=== PATIENT | male | born 1945 | race Caucasian/White ===

== ENCOUNTER 2023-02-10 09:53 | Outpatient (AMB) | payer MEDICARE, MEDICAID, SELFPAY ==
--- NOTE | 2023-02-10 09:55 | MHC.OFFVIS ---
Intake Vital Signs 02/10/23 09:58 Height 6 ft Weight 233 lb 4 oz BMI 31.6 BP 136/78 Blood Pressure Location Lt brachial Position Sitting Respiration 17 Pulse 63 Pulse Source Pulse Oximeter Pulse Oximetry (%) 95 Oxygen Delivery Method Room Air Intake Visit Reasons: ENP- Abnormal neuro exam-Confirmed Intake Note: Pt presents for new pt evaluation for abnormal neuro exam. 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 Pt has hx of TIA in 2019. Pt reports BLE weakness R>L and frequent falls. He feels his legs too heavy and weak to lift, difficulty walking up stairs. He fell first in October, and had 7 falls since then . 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 Pt has hx of lumbar degenerative disease. He gets cortisone shot on his knee and shoulder q 3 months. Pt tried physical therapy 5 times, but it aggravate his back pain. He also reports short term memory loss. He can't remember the recent conversation, and forget things. Brain MRI result 01/04/2023 result reviewed. The result was consistent with normal pressure hydrocephalus. Volume loss and chronic small vessel changes. Pt denies urinary incontinence. [facility] Medical History (Updated 02/10/23 @ 10:54 by Martha Armstrong CNP) Finger amputation, traumatic Family History (Updated 02/10/23 @ 10:04 by Stephani Tse CMA) Father No problems noted. Mother No problems noted. Brother No problems noted. Social History (Updated 02/10/23 @ 10:05 by Stephani Tse CMA) Household Members: None Housing: House Alcohol intake: former Patient Tobacco Use Status: Former Tobacco user Cigarettes Per Day: 1 Years Smoked: 20 Review of Systems Const All systems reviewed & are unremarkable except as noted in HPI and below Physical Exam Vital Signs: Last Vital Signs Pulse 63 02/10/23 09:58 Resp 17 02/10/23 09:58 BP 136/78 02/10/23 09:58 Pulse Ox 95 02/10/23 09:58 Oxygen Delivery Method Room Air 02/10/23 09:58 BMI result Body Mass Index 31.6 Const General: cooperative Nutritional Appearance: obese Orientation/consciousness: patient oriented x3 Limitations: ambulation with cane Neck Neck: Yes full ROM and Yes supple Resp Effort & Inspection: normal respiratory effort and able to speak in complete sentences Neuro General: patient oriented x3 and moves all extremities Cranial nerves: Yes CN's II-XII intact bilaterally Cognition (Neuro): normal cognition Gait exam (Neuro): Assisted gait required Motor exam (neuro): 5/5 motor strength present throughout, Pronator motor function not present and no tremor noted Deep tendon reflexes (DTR's): Rt Biceps (C5, C6): 2+, Left biceps reflex intensity grade: 2+, Right brachioradialis reflex intensity grade: 2+, Left brachioradialis reflex intensity grade: 2+, Right patellar reflex intensity grade: 1+ and Left patellar reflex intensity grade: 1+ Psych Appearance: grossly normal Mental Status: mental status grossly normal Affect: normal affect Attitude: cooperative Assessment & Plan Assessment & Plan (1) Weakness of both lower extremities: Code(s): R29.898 - Other symptoms and signs involving the musculoskeletal system (2) Difficulty walking: Code(s): R26.2 - Difficulty in walking, not elsewhere classified (3) NPH (normal pressure hydrocephalus): Code(s): G91.2 - (Idiopathic) normal pressure hydrocephalus Plan Refer patient to neurosurgeon for evaluation of NPH, lumbar puncture and shunt. Orders: Referrals Neurosurgery Referral G91.2 - (Idiopathic) normal pressure hydrocephalus, R26.2 - Difficulty in walking, not elsewhere classified, R29.898 - Other symptoms and signs involving the musculoskeletal system Coding Level of Care Code New Pt Level 4 (42594) Diagnoses Weakness of both lower extremities R29.898 Difficulty walking R26.2 NPH (normal pressure hydrocephalus) G91.2
[2023-02-10 09:58] VITALS: BP 136/78; PULSE 63; RESP 17; O2SAT 95; BMI 31.6
== END 2023-02-10 10:34 | disposition home or self-care (01) ==
PROVIDERS: PCP Internal Medicine Cardiovascular Disease; Visit Provider Nurse Practitioner Family
DX: R29.898 Other symptoms and signs involving the musculoskeletal system (principal); R26.2 Difficulty in walking, not elsewhere classified; G91.2 (Idiopathic) normal pressure hydrocephalus
CPT/HCPCS: 99204

== ENCOUNTER → 2023-02-10 09:53 | Outpatient (BNVA) | payer MEDICARE, MEDICAID, SELFPAY | PROVIDERS: PCP Internal Medicine Cardiovascular Disease; Visit Provider Nurse Practitioner Family | DX: G91.2 (Idiopathic) normal pressure hydrocephalus (principal); R29.898 Other symptoms and signs involving the musculoskeletal system; R26.2 Difficulty in walking, not elsewhere classified | CPT/HCPCS: 99202 ==

== ENCOUNTER 2023-03-13 09:10 | Day surgery (SDC) | payer MEDICARE, OTHER, SELFPAY ==
--- NOTE | ~2023-03-13 | FL_ITS ---
Fluoroscopic lumbar puncture Indication: Normal pressure hydrocephalus Risks and benefits and possible complications were discussed with the patient and the consent form was signed. Patient was placed prone on the fluoroscopy table. The back was prepped and draped in routine sterile fashion. Betadine was used as a skin antiseptic. Utilizing fluoroscopic guidance, the L4-5 level was accessed with a 22 gauge quinkie spinal needle and clear CSF fluid obtained. Opening pressure was 19 cm. 10 cc of fluid was sent for analysis. The needle was removed without immediate complications. Total fluoroscopy time: 1.1 min FL/FL guided lumbar puncture LP Impression: Fluoroscopic lumbar puncture This procedure was performed by Eitan Barba PA-C and supervised by Dr. Martínez.
[2023-03-13 09:58] VITALS: BMI 31.6
[2023-03-13 10:00] VITALS: BP 139/58; PULSE 54; RESP 18; TEMP 36.7; O2SAT 97
[2023-03-13 10:08] LABS: MANUAL DIFF FLAG NO
[2023-03-13 10:14] LABS: Basophils Percent Auto 0.5 % (0-2); Eosinophils Absolute Auto 0.2 X10*3/uL (0.0-0.4); Eosinophils Percent Auto 2.7 % (0-4); Hematocrit 38.2 % (42.0-52.0); Hemoglobin 12.5 g/dl (14.0-18.0); Imm Gran Abs Auto 0.02 X10*3/uL (0.00-0.03); Imm Gran Pct Auto 0.3 % (0.0-0.4); Lymphocytes Absolute Auto 1.9 X10*3/uL (1.2-4.9); Lymphocytes Percent Auto 30.6 % (20-40); Mean Corpuscular HGB Conc 32.7 g/dl (31.0-36.0); Mean Corpuscular Hemoglobin 28.7 pg (27.0-33.0); Mean Corpuscular Volume 87.6 fL (80.0-98.0); Mean Platelet Volume 11.2 fL (9.4-12.4); Monocytes Absolute Auto 0.6 X10*3/uL (0.1-1.2); Monocytes Percent Auto 8.7 % (2-11); Neutrophils Absolute Auto 3.6 x10*3/uL (2.0-8.3); Neutrophils Percent Auto 57.2 % (45-73); Platelet Count 184 X10*3/uL (160-400); Red Blood Count 4.36 X10*6/uL (4.60-5.80); Red Cell Distribution Width 13.7 % (11.0-16.0); White Blood Count 6.3 X10*3/uL (4.8-10.8)
[2023-03-13 10:26] LABS: Prothrombin Time 11.6 SEC (11.1-13.3)
[2023-03-13 10:29] LABS: Partial Thromboplastin Time 31.7 SEC (26.0-36.4)
[2023-03-13 12:20] VITALS: BP 143/50; PULSE 51; RESP 18; TEMP 36.5; O2SAT 98
[2023-03-13 12:35] VITALS: BP 152/54; PULSE 52; RESP 18; O2SAT 98
[2023-03-13 12:50] VITALS: BP 154/54; PULSE 52; RESP 18; O2SAT 98
[2023-03-13 13:20] VITALS: BP 160/64; PULSE 52; RESP 16; TEMP 36.3; O2SAT 98
[2023-03-13 14:03] LABS: CSF Appearance Clear, Colorless; CSF Tube # 2
[2023-03-13 14:12] LABS: Glucose CSF 54 mg/dL; Total Protein CSF 29.3 mg/dL (15-45)
[2023-03-13 15:19] LABS: Cryptococcus neoformans/gattii Not Detected (Not Detect.); Enterovirus Not Detected (Not Detect.); Escherichia coli K1 Not Detected (Not Detect.); Haemophilus influenzae Not Detected (Not Detect.); Herpes simplex virus 1 Not Detected (Not Detect.); Herpes simplex virus 2 Not Detected (Not Detect.); Human herpesvirus 6 Not Detected (Not Detect.); Human parechovirus Not Detected (Not Detect.); Listeria monocytogenes Not Detected (Not Detect.); Neisseria meningitidis Not Detected (Not Detect.); Streptococcus agalactiae Not Detected (Not Detect.); Streptococcus pneumoniae Not Detected (Not Detect.); Varicella zoster virus Not Detected (Not Detect.)
[2023-03-13 16:31] LABS: Appearance CSF CLEAR; CSF Monos 100 %; CSF Tube # 4; Color CSF COLORLESS; Red Blood Cell CSF 1 MM*3; White Blood Cell CSF 1 MM*3
[2023-03-13 16:32] LABS: Appearance CSF CLEAR; CSF Monos 100 %; CSF Tube # 1; Color CSF COLORLESS; Red Blood Cell CSF 1 MM*3; White Blood Cell CSF 1 MM*3
== END 2023-03-13 13:30 | disposition home or self-care (01) ==
PROVIDERS: Nurse Practitioner Family; Physician Assistant Surgical; PCP Registered Nurse; Visit Provider Radiology Vascular & Interventional Radiology
PROC: 009U3ZZ Drainage of Spinal Canal, Percutaneous Approach (ICD-10-PCS; CPT 62270; principal; 2023-03-13 11:00)
DX: G91.2 (Idiopathic) normal pressure hydrocephalus (principal); R29.6 Repeated falls; R53.1 Weakness; R41.3 Other amnesia; M51.36 Other intervertebral disc degeneration, lumbar region; Z86.73 Personal history of transient ischemic attack (TIA), and cerebral infarction without residual deficits; Z89.029 Acquired absence of unspecified finger(s); Z79.01 Long term (current) use of anticoagulants; Z79.899 Other long term (current) drug therapy; E66.9 Obesity, unspecified; Z68.31 Body mass index [BMI] 31.0-31.9, adult
CPT/HCPCS: 36415; 62328; 82945; 84157; 85025; 85610; 85730; 87015; 87070; 87205; 87483; 89051

== ENCOUNTER → 2023-03-13 11:03 | Outpatient (BNV) | payer MEDICARE, SELFPAY | PROVIDERS: PCP Registered Nurse; Visit Provider Radiology Diagnostic Radiology | DX: G91.9 Hydrocephalus, unspecified (principal) | CPT/HCPCS: 62328 ==

== ENCOUNTER 2023-03-14 13:00 | Outpatient (RCR) | payer MEDICARE, OTHER, SELFPAY ==
[2023-03-11 11:32] VITALS: BP 150/62; PULSE 55
--- NOTE | 2023-03-11 18:01 | MHC.PT.EP ---
[facility] [place] Office [place] Office [address] [place] [address] [phone] F: [phone] F: [phone] F: [phone] F: [phone] Physical Therapy Plan of Care Date of Evaluation: 03/11/23 Date of Surgery: N/A Diagnosis: Difficulty in walking, not elsewhere classified Idipathic normal pressure hydrocephalus Gait evaluation before and 24-48 hrs after lumbar puncture Assessment: Pt is a pleasant and motivated 78yo M who presents to PT for gait evaluation before and 24-48 hours after lumbar puncture. Pt had onset of LE weakness, decreased balance, and multiple falls since October. He reports he was previously I with ADLs and mobility prior to this functional decline. He presents to PT with current impairments in decreased LE strength, decreased balance, and impaired gait. LE sensation and proprioception are WFL bilaterally. Upon gait assessment, pt ambulates with increased trunk stiffness/decreased rotation, with minimal to no arm swing bilaterally. Pt ambulates with increased lateral trunk sway L>R. He has decreased heel strike bilaterally R>L, and occasionally drags RLE throughout gait. He has decreased step length and height bilaterally. Please see gait analysis section of PT evaluation for further details. He is limited functionally by getting in/out of bed, sit<>stand transfers, prolonged standing, walking, and stair navigation. He is an excellent candidate for skilled PT to assess gait pre/post lumbar puncture. He would benefit from PT to promote safety and LE strengthening to facilitate return to PLOF and decrease risk of falls Frequency and Duration: The patient will be seen 2x/week for 4 weeks Short Term Goals: Pt will perform sit<>stand transfers with CGA with improved safety and transfer technique Pt will ambulate 1x~100' with cl S with RW on multidirectional path with steady, safe gait Snf Goals: Pt will demonstrate ability to ambulate >200' with S with LRAD on multidirectional path with steady, safe gait Pt will demonstrate improvements in function as evidenced by statistically significant improvement in LEFI outcome measure Treatment Plan: Modalities to reduce pain, spasms and effusion. Manual therapy to restore motion and function. Therapeutic exercise to improve strength and flexibility. Neuromuscular re-education for posture and balance. Therapeutic activities to return to functional activities of daily living. Electronically signed by: Jolie Griffin, PT, DPT Please sign and return to therapist. Thank you for your referral.
--- NOTE | 2023-03-14 15:58 | MHC.PT.DC ---
[facility] [place] Office [place] [facility] [place] [address] [place] [address] [phone] F: [phone] F: [phone] F: [phone] F: [phone] Physical Therapy Discharge Report Diagnosis: Difficulty in walking, not elsewhere classified Idipathic normal pressure hydrocephalus Gait evaluation before and 24-48 hrs after lumbar puncture Date of Surgery: N/A Date of Evaluation: 03/11/23 Date of Discharge: 03/14/23 Treatments to Date: 2 Cancellations to Date: No Shows to Date: Discharge Status: Recommend MD Follow-up Discharge Summary: Pt presents ambulating with SPC for gait analysis 24 hours s/p lumbar puncture. Pt reports he does not notice an improvement with his mobility. Upon assessment, pt demonstrates improvements in LE strength testing (please see objective section for details). He demonstrated improvements in hip flexion strength bilaterally and was noted to have improved hip flexion throughout swing phase to assist with foot clearance. He continues to have decreased foot clearance on however he was not dragging RLE as severe as Friday. On Friday he required CGA-min A and today he required CGA to maintain safety throughout gait. Gait was assessed without AD, with SPC, and with RW. Pt consistently demonstrates the safest gait mechanics with use of RW. Discussed importance of use of RW throughout PT sessions for safety. Discussed importance of LE strengthening to assist with gait and mobility. Pt declined to participate in formal PT sessions but was agreeable to HEP. Provided pt with seated LE exercise handout to promote LE strength to assist with mobility. Pt and daughter report no further questions or concerns for PT at this time. Pt is D/C to HEP at this time. Electronically signed by: Jolie Griffin, PT, DPT Please sign and return to therapist. Thank you for your referral.
== END 2023-03-14 15:59 | disposition home or self-care (01) ==
LOC: HO.PT 13:00
PROVIDERS: PCP Registered Nurse; Visit Provider Nurse Practitioner Family
DX: R26.2 Difficulty in walking, not elsewhere classified (principal); G91.2 (Idiopathic) normal pressure hydrocephalus
CPT/HCPCS: 97110; 97116; 97163

== ENCOUNTER 2023-09-16 10:50 | Outpatient (AMB) | payer MEDICARE, SELFPAY ==
--- NOTE | 2023-09-16 10:58 | MHC.OFFVIS ---
Vital Signs 09/16/23 11:05 Height 6 ft Weight 176 lb 2 oz BMI 23.9 BP 138/70 Blood Pressure Location Rt brachial Position Sitting Respiration 16 Pulse 76 Pulse Source Palpation Pulse Oximetry (%) 96 Oxygen Delivery Method Room Air Intake Visit Reasons: Follow Up - Confirmed Intake Note: Pt presents to the office for a 7 month follow up for walking difficulties. 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 He had LP and 10 cc was removed , he did not notice any difference. He had CT Brain and C spine in July 2023 when he was admitted for pneumonia- CT brain showed moderate white matter abnormality , volume loss, enlargement of ventricles c/w volume loss. He had 3 falls on the same day after discharge form Hospital.His right leg drags and weaker than other and walking is slow.He denies urinary incontinence he has mild short term memory issues. [facility], [facility] Medical History (Updated 09/16/23 @ 11:38 by Rose Marie Crouch MD) Recurrent falls Gait disorder NPH (normal pressure hydrocephalus) Chronic back pain Basal cell carcinoma Benign prostate hyperplasia Hyperlipidemia TIA (transient ischemic attack) CAD (coronary artery disease) HTN (hypertension) Atrial fibrillation Finger amputation, traumatic Family History Father No problems noted. Mother No problems noted. Brother No problems noted. Social History Household Members: None Housing: House Alcohol intake: former Patient Tobacco Use Status: Former Tobacco user Cigarettes Per Day: 1 Years Smoked: 20 Physical Exam Vital Signs: Last Vital Signs Pulse 76 09/16/23 11:05 Resp 16 09/16/23 11:05 BP 138/70 09/16/23 11:05 Pulse Ox 96 09/16/23 11:05 Oxygen Delivery Method Room Air 09/16/23 11:05 BMI result Body Mass Index 23.9 Const General: cooperative Nutritional Appearance: average body habitus Orientation/consciousness: patient oriented x3 Limitations: ambulation with cane Neck Neck: Yes full ROM and Yes supple Resp Effort & Inspection: normal respiratory effort and able to speak in complete sentences Neuro Other: gait- antalgic,right knee swollen , good base General: patient oriented x3 and moves all extremities Cranial nerves: Yes CN's II-XII intact bilaterally Cognition (Neuro): normal cognition Gait exam (Neuro): Assisted gait required Motor exam (neuro): 5/5 motor strength present throughout and no tremor noted Deep tendon reflexes (DTR's): Rt Biceps (C5, C6): 2+, Left biceps reflex intensity grade: 2+, Right brachioradialis reflex intensity grade: 2+, Left brachioradialis reflex intensity grade: 2+, Right patellar reflex intensity grade: 1+ and Left patellar reflex intensity grade: 1+ Psych Appearance: grossly normal Mental Status: mental status grossly normal Affect: normal affect Attitude: cooperative Assessment & Plan Assessment & Plan (1) Gait disorder: Comment: multifactorial - musculoskeletal, white matter disease, frontal gait disorder , deconditioning Code(s): R26.9 - Unspecified abnormalities of gait and mobility Category: Medical Plan Reviewed recent CT - no evidence of NPH No evidence of parkinsons I suggested PT for gait training - he declines - says it hurt his back. will consider vna F/i with telecommunications specialist Orders: Referrals [facility] Referral I99.9 - Unspecified disorder of circulatory system, R26.9 - Unspecified abnormalities of gait and mobility, R29.6 - Repeated falls Coding Level of Care Code Est Pt Level 4 (11378) Diagnoses Gait disorder R26.9
[2023-09-16 11:05] VITALS: BP 138/70; PULSE 76; RESP 16; O2SAT 96; BMI 23.9
== END 2023-09-16 11:43 | disposition home or self-care (01) ==
PROVIDERS: PCP Registered Nurse; Visit Provider Psychiatry & Neurology Neurology
DX: R26.9 Unspecified abnormalities of gait and mobility (principal)
CPT/HCPCS: 99214

== ENCOUNTER → 2023-09-16 10:50 | Outpatient (BNVA) | payer MEDICARE, SELFPAY | PROVIDERS: PCP Registered Nurse; Visit Provider Psychiatry & Neurology Neurology | DX: R26.9 Unspecified abnormalities of gait and mobility (principal) | CPT/HCPCS: 99212 ==

== ENCOUNTER 2023-12-16 10:22 | Outpatient (AMB) | payer MEDICARE, SELFPAY ==
--- NOTE | 2023-12-16 10:43 | MHC.PC.OV ---
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 Narcotics Required: No Allergies No Known Allergies Allergy (Verified 09/16/23 10:59) Tobacco use date assessed: 12/16/23 Fall risk assessment: 2 + Falls in past year Last assessed Fall Risk: 12/16/23 Dental Screening Dental Screen Date: 12/16/23 Did you have a dental visit in the last 12 months?: No Did you have a dental problem in the last 6 months where you did not have access to dental care?: No Was dental information given to patient?: Patient declined (Has dentures) HPI HPI Comments History of Present Illness Details 77 y/o male patient with a past medical history of hypertension, hyperlipidemia, TIA, NPH, white matter changes, low back pain presenting to [facility] care CV: Follows with [facility] Dr Teague every 6 months. Urology: BPH. Follows with Dr Macias at [place] [facility]: history of TIA, NPH. Follows with neurology. Pt reports BLE weakness R>L and frequent falls. He feels his legs too heavy and weak to lift, difficulty walking up stairs. Memory loss. Brain MRI result 01/04/2023 result reviewed. The result was consistent with normal pressure hydrocephalus. volume loss and chronic small vessel changes. MSK: Pt has hx of lumbar degenerative disease. Saw [facility]. Received lumbar injection. Legs still feel heavy, decreases mobility. Has swelling which is much better. Did not tolerate diuretic or prescription compression NEOS for knee, shoulder. He gets cortisone shot on his knee and shoulder q 3 months. ROS see HPI PHYSICAL EXAM: GENERAL: Alert and oriented x 3. NAD EYES: EOMI. Anicteric. HENT: Moist mucous membranes. No scleral icterus. No cervical lymphadenopathy. LUNGS: Clear to auscultation bilaterally. CARDIOVASCULAR: Regular rate and rhythm. soft systolic murmur No JVD. ABDOMEN: Soft, non-tender +bs EXTREMITIES: 1+ b/l LE edema SKIN: No rashes or lesions. Warm. NEUROLOGIC: No focal neurological deficits. CN II-XII grossly intact PSYCHIATRIC: Cooperative. Appropriate mood and affect [facility] Medical History Recurrent falls Gait disorder NPH (normal pressure hydrocephalus) Chronic back pain Basal cell carcinoma Benign prostate hyperplasia Hyperlipidemia TIA (transient ischemic attack) CAD (coronary artery disease) HTN (hypertension) Atrial fibrillation Finger amputation, traumatic Surgical History Hx of colonoscopy History of surgical removal of meniscus of knee Family History Father No problems noted. Mother No problems noted. Brother No problems noted. Social History Household Members: None Housing: House Alcohol intake: former Patient Tobacco Use Status: Former Tobacco user Cigarettes Per Day: 1 Years Smoked: 20 e-Cigarette/Vaping Use: Never Used service: No Current occupational status: retired Cognitive needs: No Hearing needs: Yes Vision needs: No Questionnaire PHQ-9 Over the last 2 weeks, how often have you been bothered by any of the following problems? 1. Little interest or pleasure in doing things: not at all 2. Feeling down, depressed, or hopeless: not at all 3. Trouble falling or staying asleep, or sleeping too much: not at all 4. Feeling tired or having little energy: several days 5. Poor appetite or overeating: not at all 6. Feeling bad about yourself - or that you are a failure or have let yourself or your family down: not at all 7. Trouble concentrating on things, such as reading the newspaper or watching television: not at all 8. Moving or speaking so slowly that other people could have noticed. Or the opposite - being so fidgety or restless that you have been moving around a lot more than usual: not at all 9. Thoughts that you would be better off or of hurting yourself in some way: not at all Total score: 1 Depression Screening Interpretation: Negative Depression Screening Done: Yes 49929 - PHQ-9 Billing: Yes Source: Developed by Drs. Demetris Yanes, Sera Vitale, Reginald Joy and colleagues, with an educational abena from [employer]. Thrive Questionnaire Date Thrive assessed: 12/13/23 I am a: Parent/Caregiver What is your living situation today?: I have a steady place to live Within the past 12 months, did the food you bought not last and you didn't have the money to get more?: Never true Within the past 12 months, did you worry whether your food would run out before you got money to buy more?: Never true Do you have trouble paying for medicines?: No Do you have trouble getting transportation to medical appointments?: No Do you have trouble paying your heating and electricity bill?: No Do you have trouble taking care of your child, family member or friend?: I choose not to answer this question Do you have trouble with day-to-day activities such as bathing, preparing meals, shopping, managing finances, etc.?: Yes Are you currently unemployed and looking for a job?: No Are you interested in more education?: No Please select the resources that you would like help with: None Currently or been in a relationship where the following occur: No concerns reported THRIVE Score: 0 AUDIT C Alcohol Use Questionnaire (AUDIT-C) 1. How often do you have a drink containing alcohol?: 2-4 times a month 2. How many drinks containing alcohol do you have on a typical day when you are drinking?: 1 or 2 3. How often do you have six or more drinks on one occasion?: Never Total Score: 2 MUNIR-7 AMB Questionnaire MUNIR-7 Feeling nervous, anxious, or on edge: 0 = Not at all Not being able to stop or control worryin = Not at all Worrying too much about different things: 0 = Not at all Trouble relaxin = Not at all Being so restless that it is hard to sit still: 0 = Not at all Feeling afraid as if something awful might happen: 0 = Not at all Source: Developed by Drs. Demetris Yanes, Sera Vitale, Reginald Joy and colleagues, with an educational abena from [employer]. Physical exam (Primary Care) Vital Signs: Last Vital Signs Temp 98.1 F 12/16/23 10:50 Pulse 60 12/16/23 10:50 BP 116/66 12/16/23 10:50 Pulse Ox 98 12/16/23 10:50 Oxygen Delivery Method Room Air 12/16/23 10:50 BMI result Body Mass Index 31.4 Tobacco/Smoking Status: Tobacco use Status Tobacco use date assessed 12/16/23 12/16/23 10:49 Patient Tobacco Use Status Former Tobacco user 12/16/23 10:49 e-Cigarette/Vaping Use Never Used 12/16/23 10:49 PHQ-9: PHQ-9 Score PHQ-9: Total score 1 12/16/23 10:53 Depression Screening Interpretation: Negative Thrive Assessment: Date of Thrive Assessment Date Thrive assessed 12/13/23 12/16/23 10:49 Currently or been in a relationship where the following occur: No concerns reported Coding Level of Care Code New Pt Level 5 (84944) Diagnoses Encounter to establish care Z76.89 Weakness of both lower extremities R29.898 Laterality: bilateral Paroxysmal atrial fibrillation I48.0 Atrial fibrillation type: paroxysmal NPH (normal pressure hydrocephalus) G91.2 Assessment & Plan Assessment & Plan (1) Encounter to establish care: Code(s): Z76.89 - Persons encountering health services in other specified circumstances Category: Medical (2) Lower extremity weakness: Code(s): R29.898 - Other symptoms and signs involving the musculoskeletal system Category: Medical Qualifiers: Laterality: bilateral Qualified Code(s): R29.898 - Other symptoms and signs involving the musculoskeletal system Plan: Multifactorial, 2/2 fluid retention, lumbar DDD, ?NPH Declines additional PT Recommend 8-15mmHG compression-could not tolerate rx (3) Atrial fibrillation: Code(s): I48.91 - Unspecified atrial fibrillation Category: Medical Qualifiers: Atrial fibrillation type: paroxysmal Qualified Code(s): I48.0 - Paroxysmal atrial fibrillation Plan: Follows with cardiology. BP controlled (4) NPH (normal pressure hydrocephalus): Code(s): G91.2 - (Idiopathic) normal pressure hydrocephalus Category: Medical Plan: Continue follow up neuro Start donepezil for memory loss Plan establish care-past medical, surgical, social and family history reviewed. Orders: Orders Complete Blood Count Auto Diff Today E78.5 - Hyperlipidemia, unspecified, I10 - Essential (primary) hypertension, I48.91 - Unspecified atrial fibrillation, R29.898 - Other symptoms and signs involving the musculoskeletal system Comprehensive Met. Panel Today E78.5 - Hyperlipidemia, unspecified, I10 - Essential (primary) hypertension, I48.91 - Unspecified atrial fibrillation, R29.898 - Other symptoms and signs involving the musculoskeletal system Lipid Panel Today E78.5 - Hyperlipidemia, unspecified, I10 - Essential (primary) hypertension, I48.91 - Unspecified atrial fibrillation, R29.898 - Other symptoms and signs involving the musculoskeletal system TSH reflex Free T4 Today E78.5 - Hyperlipidemia, unspecified, I10 - Essential (primary) hypertension, I48.91 - Unspecified atrial fibrillation, R29.898 - Other symptoms and signs involving the musculoskeletal system Vitamin B12 and Folate Today E78.5 - Hyperlipidemia, unspecified, I10 - Essential (primary) hypertension, I48.91 - Unspecified atrial fibrillation, R29.898 - Other symptoms and signs involving the musculoskeletal system IRON PROFILE Today R29.898 - Other symptoms and signs involving the musculoskeletal system Medications: New donepezil 5 mg PO BEDTIME 90 tabs 3RF
[2023-12-16 10:50] VITALS: BP 116/66; PULSE 60; TEMP 36.7; O2SAT 98; BMI 31.4
== END 2023-12-16 11:15 | disposition home or self-care (01) ==
PROVIDERS: PCP Registered Nurse; Visit Provider Internal Medicine
DX: Z76.89 Persons encountering health services in other specified circumstances (principal); R29.898 Other symptoms and signs involving the musculoskeletal system; I48.0 Paroxysmal atrial fibrillation; G91.2 (Idiopathic) normal pressure hydrocephalus

== ENCOUNTER 2023-12-16 11:31 | Outpatient (REF) | payer MEDICARE, SELFPAY ==
[2023-12-16 14:19] LABS: MANUAL DIFF FLAG NO
[2023-12-16 14:42] LABS: Basophils Percent Auto 0.4 % (0-2); Eosinophils Absolute Auto 0.1 X10*3/uL (0.0-0.4); Eosinophils Percent Auto 1.3 % (0-4); Hematocrit 41.9 % (42.0-52.0); Hemoglobin 13.6 g/dl (14.0-18.0); Imm Gran Abs Auto 0.03 X10*3/uL (0.00-0.03); Imm Gran Pct Auto 0.4 % (0.0-0.4); Lymphocytes Absolute Auto 3.1 X10*3/uL (1.2-4.9); Lymphocytes Percent Auto 36.6 % (20-40); Mean Corpuscular HGB Conc 32.5 g/dl (31.0-36.0); Mean Corpuscular Hemoglobin 29.1 pg (27.0-33.0); Mean Corpuscular Volume 89.5 fL (80.0-98.0); Mean Platelet Volume 11.1 fL (9.4-12.4); Monocytes Absolute Auto 0.7 X10*3/uL (0.1-1.2); Neutrophils Absolute Auto 4.5 x10*3/uL (2.0-8.3); Neutrophils Percent Auto 53.3 % (45-73); Platelet Count 257 X10*3/uL (160-400); Red Blood Count 4.68 X10*6/uL (4.60-5.80); Red Cell Distribution Width 15.4 % (11.0-16.0); White Blood Count 8.4 X10*3/uL (4.8-10.8)
[2023-12-16 15:00] LABS: Alanine Aminotransferase 28 U/L (0-40); Alkaline Phosphatase 51 U/L (39-117); Anion Gap 9 (12-20); Aspartate Amino Transferase 28 U/L (5-37); Bilirubin Total 0.9 mg/dL (0.0-1.0); Blood Urea Nitrogen 14 mg/dL (9-16); Calcium 9.5 mg/dL (8.4-10.2); Carbon Dioxide 30 mmol/L (22-29); Chloride 103 mmol/L (96-108); Cholesterol 136 mg/dL (<200); Estimated Glomerular Filt Rate > 60; Glucose Random 92 mg/dL (60-115); HDL Cholesterol 48 mg/dL (>40); Iron 64 mcg/dL (45-160); LDL Cholesterol Calculated 68 mg/dL (<100); Percent Iron Saturation 29 % (15-50); Potassium 3.7 mmol/L (3.3-5.1); Sodium 138 mmol/L (135-145); Total Iron Binding Capacity 217 mcg/dL (228-428); Total Protein 6.5 g/dL (6.5-8.0); Triglycerides 100 mg/dL (<150); Unsaturated Iron Binding 153 ug/dL
[2023-12-16 15:05] LABS: TSH reflex Free T4 1.29 uIU/mL (0.32-4.0)
[2023-12-16 15:23] LABS: Folate 9.4 ng/mL (> or = 4.0); Vitamin B12 335 pg/mL (200-900)
== END 2023-12-16 11:32 | disposition home or self-care (01) ==
LOC: HO.WFDLDS 11:31
PROVIDERS: Visit Provider Internal Medicine
DX: E78.5 Hyperlipidemia, unspecified (principal); I10 Essential (primary) hypertension; I48.91 Unspecified atrial fibrillation; R29.898 Other symptoms and signs involving the musculoskeletal system; G91.2 (Idiopathic) normal pressure hydrocephalus
CPT/HCPCS: 36415; 80053; 80061; 82607; 82746; 83540; 84443; 85025; 96127; 99202

== ENCOUNTER 2024-06-08 11:16 | Outpatient (AMB) | payer MEDICARE, SELFPAY ==
--- NOTE | 2024-06-08 11:27 | A.OFFVIS_ITS ---
Intake Vital Signs 06/08/24 11:32 Height 6 ft Weight 242 lb BMI 32.8 BP 134/73 Blood Pressure Location Lt brachial Position Sitting Respiration 16 Pulse 64 Pulse Source Pulse Oximeter Pulse Oximetry (%) 96 Oxygen Delivery Method Room Air Intake Visit Reasons: AWV Intake Note: Medical wellness visit School Inspector Required: No Allergies No Known Allergies Allergy (Verified 06/08/24 11:23) HPI HPI Comments History of Present Illness Details 79 y/o male patient with a past medical history of hypertension, hyperlipidemia, TIA, NPH, white matter changes, low back pain presenting for AWV. CV: Follows with [facility] Cardiology Dr Teague every 6 months. Upcoming watchman. Will be able to come off eliquis thereafter. Urology: BPH. Follows with Dr Macias at [place]. Will have upcoming prostate surgery. Neuro: history of TIA, NPH. Follows with neurology. Pt reports BLE weakness R>L and frequent falls. He feels his legs too heavy and weak to lift, difficulty walking up stairs. Memory loss. Brain MRI result 01/04/2023 result reviewed. The result was consistent with normal pressure hydrocephalus but neurology did review and did not see evidence of this. LP was not helpful. volume loss and chronic small vessel changes. Continues on donepezil. MSK: -His biggest issue is uncontrolled chron ic pain. Sits on the recliner most of the day a pain levels are too high. He would like to be able to walk, do yardwork. He was recently started on LDN but this has not afforded him relief from pain. He was interested in Journavx but this does not appeared to be covered by insurance. Low back, shoulders, knees. He takes tylenol. Unable to take other otc medications. On eliquis. -Pt has hx of lumbar degenerative diseas e. Saw [facility]. Received lumbar injection-was not effective. Legs still feel heavy, decreases mobility. Has swelling which is much better. Did not tolerate diuretic or prescription compression. MRI lumbar spine July 2023 [facility] for knee, shoulder. He gets cortisone shot on his knee and shoulder q 3 months. ROS see HPI PHYSICAL EXAM: GENERAL: Alert and oriented x 3. NAD EYES: EOMI. Anicteric. HENT: Moist mucous membranes. No scleral icterus. No cervical lymphadenopathy. LUNGS: Clear to auscultation bilaterally. CARDIOVASCULAR: Regular rate and rhythm. soft systolic murmur No JVD. ABDOMEN: Soft, non-tender +bs EXTREMITIES: 1+ b/l LE edema SKIN: No rashes or lesions. Warm. NEUROLOGIC: No focal neurological deficits. CN II-XII grossly intact PSYCHIATRIC: Cooperative. Appropriate mood and affect [facility] Medical History Recurrent falls Gait disorder NPH (normal pressure hydrocephalus) Chronic back pain Basal cell carcinoma Benign prostate hyperplasia Hyperlipidemia TIA (transient ischemic attack) CAD (coronary artery disease) HTN (hypertension) Atrial fibrillation Finger amputation, traumatic Surgical History Hx of colonoscopy History of surgical removal of meniscus of knee Family History Father No problems noted. Mother No problems noted. Brother No problems noted. Social History Household Members: None Housing: House Alcohol intake: former Patient Tobacco Use Status: Former Tobacco user Cigarettes Per Day: 1 Years Smoked: 20 e-Cigarette/Vaping Use: Never Used service: No Current occupational status: retired Cognitive needs: No Hearing needs: Yes Vision needs: No Questionnaire Medicare Wellness Checkup What [age]?: [age] What gender do you identify with?: male During the past 4 weeks, how much have you been bothered by emotional problems such as feeling anxious, depressed, irritable, sad or downhearted, and blue?: moderately During the past 4 weeks, has your physical & emotional health limited your social activities with family, friends, neighbors, or groups?: moderately During the past 4 weeks, how much bodily pain have you generally had?: severe pain During the past 4 weeks, was someone available to help you if you needed & wanted help?: yes, as much as I wanted During the past 4 weeks, what was the hardest physical activity you could do for at least 2 minutes?: very light Can you get to places out of walking distance without help? (For eg., can you travel alone on buses, taxis or drive your car?): No Can you go shopping for groceries or clothes without someone's help?: No Can you prepare your own meals?: Yes Can you do your housework without help?: No Because of any health problems, do you need the help of another person with your personal care needs such as eating, bathing, dressing or getting around the house?: Yes Can you handle your own money without help?: Yes During the past 4 weeks, how would you rate your health in general?: poor During the past 4 weeks how have things been going for you?: good & bad parts about equal Are you having difficulties driving your car?: not applicable, I don't use a car Do you always fasten your seat belt when you are in a car?: yes, usually During past 4 weeks, have you been bothered by the following: never: Trouble eating well?, seldom: Problems using the telephone? and often: Teeth or denture problems? Have you fallen 2 or more times in the past year?: Yes Are you afraid of falling?: Yes Are you a smoker?: no During the past 4 weeks, how many drinks of wine, beer, or other alcoholic beverages did you have?: 1 drink or less per week Do you exercise for about 20 minutes 3 or more times a week?: no, I usually do not exercise this much Have you been given information to help with the following?: yes: Keeping track of your medications? and no: Hazards in your house that might hurt you? How often do you have trouble taking medicines the way you have been told to take them?: I always take medicine as prescribed How confident are you that you can control & manage most of your health problems?: not very confident What is your race?: White Mini Mental State Exam (MMSE) Orientation What is the (year) (season) (date) (day) (month)?: year (2024), season (spring) and date () Where are we (state) (county) (town or city) (hospital) (floor)?: state ([place]), county ([place]), town or city ([place]), hospital/clinic ([facility]) and floor ([place]) Registration Name of 3 unrelated objects clearly and slowly, then ask patient to repeat all 3 of them. (1st repeat determines score. Make sure they can repeat all three): object 1 (Ball ), object 2 (flag) and object 3 (tree) Attention & Calculation (CHOOSE ONE) Ask pt to begin with 100 & count backward by 7. Stop after 5 repeats. If pt cannot ask them to spell the word WORLD backward.: 93 (Unable to complete) Spell WORLD backwards (DLROW): 0 letters Recall Ask patient to repeat the 3 items from question #3.: object 1 (ball) and object 2 (flag) Language Show patient a wristwatch & ask what it is. Repeat for pencil.: watch and pencil Ask the patient to 'take a piece of paper with their right hand' 'fold paper in half' 'place paper on floor': take paper in right hand Print the sentence 'CLOSE YOUR EYES' on a piece. If patient actually closes eyes then score.: followed written direction Ask patient to copy figure of intersecting pentagons exactly. Score if all 10 angles & 2 intersects are included.: all 10 angles present & 2 are intersected Score Score: 19 Physical Exam Vital Signs: Last Vital Signs Pulse 64 06/08/24 11:32 Resp 16 06/08/24 11:32 BP 134/73 06/08/24 11:32 Pulse Ox 96 06/08/24 11:32 Oxygen Delivery Method Room Air 06/08/24 11:32 BMI result Body Mass Index 32.8 Assessment & Plan Assessment & Plan (1) Encounter for initial annual wellness visit (AWV) in Medicare patient: Code(s): Z00.00 - Encounter for general adult medical examination without abnormal findings (2) Chronic back pain: Code(s): M54.9 - Dorsalgia, unspecified; G89.29 - Other chronic pain Qualifiers: Back pain laterality: bilateral Back pain location: low back pain Sciatica laterality: bilateral sciatica Sciatica presence: with sciatica Qualified Code(s): M54.42 - Lumbago with sciatica, left side; M54.41 - Lumbago with sciatica, right side; G89.29 - Other chronic pain (3) DDD (degenerative disc disease), lumbosacral: Code(s): M51.379 - Other intervertebral disc degeneration, lumbosacral region without mention of lumbar back pain or lower extremity pain Qualifiers: Disc-related pain type: unspecified whether pain present Qualified Code(s): M51.379 - Other intervertebral disc degeneration, lumbosacral region without mention of lumbar back pain or lower extremity pain (4) Atrial fibrillation: Code(s): I48.91 - Unspecified atrial fibrillation Qualifiers: Atrial fibrillation type: paroxysmal Qualified Code(s): I48.0 - Paroxysmal atrial fibrillation Plan MWV-HRA, care team, medications reconciled. Ongoing memory loss without interval worsening. Plagued by uncontrolled pain levels Will start 12 hr oxycodone with some breakthrough IR. Narcan sent. Medication SE, profile discussed Medications: New oxycodone ER Partial Fill upon patient request. 15 mg PO BID 60 tabs 0RF G89.29 - Other chronic pain, M51.379 - Other intervertebral disc degeneration, lumbosacral region without mention of lumbar back pain or lower extremity pain naloxone 4 mg/actuation (Narcan) spray 1 dose into ONE nostril; alternate nostrils w each dose until help arrives 4 mg intranasal Q3M PRN 2 ea 0RF opioid overdose suzetrigine (Journavx) 50 mg PO DAILY 30 tabs 0RF oxycodone Partial Fill upon patient request. 5 mg PO BID PRN 60 tabs 0RF breakthrough pain prednisone Take 2 tab oral once daily for 5 days then one tab oral once daily for 3 days 13 tabs 0RF Quality Reporting (2019) Fall Risk Screening ([facility] 139) Last assessed Fall Risk: 06/08/24 Fall risk assessment: 2 + Falls in past year Coding Level of Care Code Medicare Subsequent (G0439) Diagnoses Encounter for initial annual wellness visit (AWV) in Medicare patient Z00.00 Chronic bilateral low back pain with bilateral sciatica M54.42; M54.41; G89.29 Back pain laterality: bilateral Back pain location: low back pain Sciatica laterality: bilateral sciatica Sciatica presence: with sciatica Degeneration of intervertebral disc of lumbosacral region, unspecified whether pain present M51.379 Disc-related pain type: unspecified whether pain present Paroxysmal atrial fibrillation I48.0 Atrial fibrillation type: paroxysmal
[2024-06-08 11:32] VITALS: BP 134/73; PULSE 64; RESP 16; O2SAT 96; BMI 32.8
--- OUTSIDE RECORDS SUMMARY | 2024-06-08 13:56 | XMS_ITS | Clinical Summary ---
Author Organization [facility] Address [address] [place] [address] Care Team Providers Care Leadership Program Associate Name Role Phone Unavailable Primary Care Provider Unavailabl e Source Comments PLEASE NOTE, if this patient is a minor, it may be UNLAWFUL to discuss sensitive information that is contained in these records (such as FAMILY PLANNING, MENTAL HEALTH or SUBSTANCE ABUSE) with the minor patient's parent or other person without the patient's specific authorization.[facility] Medications No known medications Active Problems No known active problems Encounters Date Type Department Care Team Description 05/18/2024 2:20 PM EDT Office Visit [address] [phone] Grace Ramírez DDS Complete edentulism, unspecified edentulism class (Primary Dx) 05/10/2024 1:40 PM EDT Office Visit [address] [phone] Grace Ramírez DDS Complete edentulism, unspecified edentulism class (Primary Dx) from Last 3 Months Social History Tobacco Use Types Packs/Day Years Used Date Smoking Tobacco: Never Assessed Social Connections Answer Date Recorded Connectedness 0 11/12/2023 Financial Resource Strain Answer Date R ecorded Financial Resource Strain 0 2021 Stress Answer Date Recorded Stress 0 11/21/2021 Physical Activity Answer Date Recorded Physical Activity 0 11/21/2021 Food Insecurity Answer Date Recorded Food 0 11/20/2023 Transportation Needs Answer Date Record ed Transportation 0 11/21/2021 Housing Stability Answer Date Recorded Housing 0 11/21/2021 Safety and Environment Answer Date Ian rded Safety 0 11/21/2021 Utilities Answer Date Recorded Utilities 0 11/21/2021 Employment Answer Date Recorded Stress 0 11/12/2023 Sex and Gender Information Value Date Recorded Sex Assigned at Not on file Legal Sex Male 1:24 PM PDT Gender Identity Not on file Sexual Orientation Not on file Last Filed Vital Signs Vital Sign Reading Time Taken Comments Blood Pressure 177/95 11/21/2021 1:56 PM EDT Pulse 69 11/21/2021 1:56 PM EDT Temperature - - Respiratory Rate - - Oxygen Saturation - - Inhaled Oxygen Concentration - - Weight - - Height - - Body Mass Index - - Plan of Treatment Health Maintenance Due Date Last Done Comments Hepatitis C Screening 1945 Tobacco Screening 1945 Imm-DTaP/Tdap/Td (1 - Tdap) 02/18/1964 Imm-Pneumococcal 65+ (1 of 1 - PCV) 1995 Imm-Zoster, Recombinant (1 of 2) 1995 Falls Prevention 2010 Hypertension Screening (#1) 11/21/2022 [id number] (1 - season) 2023 Imm-Influenza (#1) 2023 12/27/2018 Alcohol and Drug Screen 02/25/2024 Depression Annual Screen 02/25/2024 Procedures Procedure Name Priority Date/Time Associated Diagnosis Comments REPAIR RESIN PARTIAL DENTURE BASE MAXILLARY Routine 05/18/2024 2:20 PM EDT Complete edentulism, unspecified edentulism class CASE PRESENTATION SUBS DTL & EXTENSIVE TX PLN Routine 05/18/2024 2:20 PM EDT Complete edentulism, unspecified edentulism class CASE PRESENTATION SUBS DTL & EXTENSIVE TX PLN Routine 05/10/2024 1:40 PM EDT Complete edentulism, unspecified edentulism class COMPLETE DENTURE - FINAL IMPRESSIONS Routine 05/10/2024 1:40 PM EDT Complete edentulism, unspecified edentulism class from Last 3 Months Insurance [facility] [place] [id number]
--- OUTSIDE RECORDS SUMMARY | 2024-06-08 13:56 | XMS_ITS | Clinical Summary ---
Author Organization [facility] Address [address] [place] [id number] Phone Care Team Providers Care Pipe Stem Aligner Name Role Phone Bella Frey Primary Care Provider + [phone] Allergies No known active allergies Medications atorvastatin (LIPITOR) 80 mg tablet Take 1 tablet (80 mg total) by mouth 1 (one) time each day. 07/02/2023 Active cholecalciferol (VITAMIN D-3) 50 mcg (2,000 unit) tablet Take 1 tablet (2,000 Units total) by mouth 1 (one) time each day. Active metoprolol tartrate (LOPRESSOR) 25 mg tablet Take 1 tablet (25 mg total) by mouth 2 (two) times a day. 07/02/2023 Active nitroglycerin (NITROSTAT) 0.4 mg SL tablet Take 1 tablet (0.4 mg total) by mouth 1 (one) time each day if needed. 12/31/2017 Active tamsulosin (FLOMAX) 0.4 mg 24 hr capsule Take 1 capsule (0.4 mg total) by mouth 1 (one) time each day. 02/21/2019 Active traZODone (DESYREL) 150 mg tablet Take 1 tablet (150 mg total) by mouth at bedtime as needed. Active donepeziL (ARICEPT) 5 mg tablet Take 1 tablet (5 mg total) by mouth at bedtime. at bedtime. 12/16/2023 Active apixaban (Eliquis) 5 mg tablet TAKE 1 TABLET BY MOUTH TWICE DAILY 180 tablet 1 03/17/2024 Active Active Problems Problem Noted Date Diagnosed Date Gait disturbance 07/02/2023 Overview (01/07/2024): Last Assessment & Plan: Patient has a gait disturbance and not certain that it secondary to the stroke. But it almost sounds like Parkinson's it is a shuffled gait that speeds up and he has very little control of it once he gets started. I asked him to continue to speak with the neurologist but also told him that they may want to consult the hospitality team member at some point if no particular etiology can be identified. The symptoms do not seem to be vascular Weakness 11/20/2022 Overview (01/07/2024): Last Assessment & Plan: Patient complains of weakness he states he has difficulty climbing stairs he has difficulty getting up a ladder pushing off with his feet. No back pain. No claudication type symptoms. No orthostasis on exam. We will check a CPK to make sure that this not a side effect of his statin. We will also check a thyroid profile to see if there is any issues with his thyroid that could explain this. But it sounds as if this is more of a neurological issue. The patient will be referred to neurology for evaluation. We will cancel this if there is evidence of a myopathic process but I suspect more likely he needs a neuro evaluation and possibly a PMR evaluation for his weakness. Hyperlipidemia 05/15/2022 Overview (01/07/2024): Last Assessment & Plan: Lipids are well managed at this time Assessment & Plan (02/10/2024 12:34 PM EST): Medically managed Hypertension 05/15/2022 Overview (01/07/2024): Last Assessment & Plan: Patient with hypertension he states his pressures are always normal outside of my office he has an upcoming appoint with his primary care physician but my suspicion is that the pressure will be high there also and hypertensive therapy may need to be started Assessment & Plan (02/10/2024 12:34 PM EST): Blood pressure well-controlled on present medical management Localized edema 07/17/2020 Vasospastic angina (CMS/HCC V24) 07/17/2020 Overview (01/07/2024): Last Assessment & Plan: Patient with no complaints of chest pain or discomfort. Risk factor modification in place though blood pressure is slightly elevated today no changes in therapy at this point patient is a cuff at home and will manage to follow Assessment & Plan (02/10/2024 12:34 PM EST): Patient with a history of vasospastic angina on medical management no further episodes of chest pain reported by patient. Atrial fibrillation ([facility] V24, [facility] V28) 0 04/13/2020 Overview (01/07/2024): Patient with a history of TIA. Found to be in A. fib. Patient remains on chronic anticoagulation due to elevated CHADS2 score. No residual sequelae from his recent stroke. Last Assessment & Plan: Patient with a history of A-fib with associated TIAs. Remains chronically anticoagulated would need to be bridged if off anticoagulation for prolonged period of time. Patient's had no recent bleeding issues with anticoagulation Assessment & Plan (02/10/2024 12:34 PM EST): Patient with paroxysmal atrial fibrillation. History of stroke. Would recommend continuation of anticoagulation. Patient wants to consider discontinuation of anticoagulation and possible back surgery. He would need to be off of anticoagulation for quite a period of time to have the back taken care of. Given his falls that has been having I think a Watchman device would be appropriate in the setting. We set up an appointment to be seen by our watchman physicians Orders: Ambulatory referral to Cardiac Electrophysiology; Future Coronary artery disease 04/13/2020 Overview (01/07/2024): Last Assessment & Plan: Patient with remote history of arthroscopic coronary disease. No further anginal symptoms. Risk factor modification in place. Assessment & Plan (02/10/2024 12:34 PM EST): History of vasospastic angina hide medical management Edema 04/13/2020 Overview (01/07/2024): Patient with complaints of lower extremity edema put himself on hydrochlorothiazide 25 mg a day. (From his daughter and is running out) Has not had any lab work done since then. He bought the pills from his daughter. And was sent to the lab for lab work. He does have very mild edema told him not to play with his medications any further without talking to us. Last Assessment & Plan: Patient is edema secondary to venous insufficiency. He has support socks we have again discussed the need to wear them since diuresis is basically prompted presyncopal symptoms.. Patient had tried taking some of his daughter's hydrochlorothiazide and he stopped using it. Was causing side effects Social History Tobacco Use Types Packs/Day Years Used Date Smoking Tobacco: Former Cigarettes Q uit: 02/24/1983 Smokeless Tobacco: Never Alcohol Use Standard Drinks/Week Comments Not Currently 0 (1 standard drink = 0.6 oz pur e alcohol) Sex and Gender Information Value Date Recorded Sex Assigned at Not on file Legal Sex Male 8:38 AM EST Gender Identity Not on file Sexual Orientation Not on file Obstetrics History Last Filed Vital Signs Vital Sign Reading Time Taken Comments Blood Pressure 132/70 02/10/2024 12:32 PM EST Pulse 73 02/10/2024 10:48 AM EST Temperature - - Respiratory Rate - - Oxygen Saturation 97% 02/10/2024 10:48 AM EST Inhaled Oxygen Concentration - - Weight 106 kg (234 lb) 02/10/2024 10:48 AM EST Height 182.9 cm (6') 02/10/2024 10:48 AM EST Body Mass Index 31.74 02/10/2024 10:48 AM EST Plan of Treatment Upcoming Encounters Date Type Department Care Team (Late st Contact Info) Description 06/15/2024 2:20 PM EDT Consult [facility] [address] [place] [phone] Ruthann Alanis MD [address] [place] [address] 08/17/2024 10:40 AM EDT Office Visit [facility] [address] [place] [phone] Tammy Craven, EFE [address] [place] [address] [place] [address] Health Maintenance Due Date Last Done Comments DTaP,Tdap,and Td Vaccines (1 - Tdap) 02/18/1964 Pneumococcal Vaccine: 50+ Years (2 of 2 - PPSV23) 11/27/2018 11/27/2017 Cholesterol Screening (Lipid Panel) 02/02/2022 Depression Screening 02/02/2022 Falls Risk Assessment 02/02/2022 Hepatitis C Screening 02/02/2022 Social Influencers of Health Screening 02/02/2022 Hypertension/CHF/CAD Annual BMP Blood Test 02/06/2022 Medicare Annual Wellness Visit 12/04/2023 12/03/2022 COVID-19 Vaccine ( season) 2024 12/09/2023, 01/10/2023, 11/27/2020 Zoster Vaccines Completed 04/11/2023, 01/10/2023 Influenza Vaccine Completed 12/09/2023, , 12/24/2021, Additional history exists RSV Immunization Adult Patients Completed 12/09/2023 HIB Vaccines Aged Out No longer eligi ble based on patient's age to complete this topic HPV Vaccines Aged Out No longer eligi ble based on patient's age to complete this topic Hepatitis A Vaccines Aged Out No long er eligible based on patient's age to complete this topic Hepatitis B Vaccines Aged Out No long er eligible based on patient's age to complete this topic IPV Vaccines Aged Out No longer eligi ble based on patient's age to complete this topic MMR Vaccines Aged Out No longer eligi ble based on patient's age to complete this topic Meningococcal ACWY Vaccine Aged Out N o longer eligible based on patient's age to complete this topic Meningococcal B Vaccine Aged Out No l onger eligible based on patient's age to complete this topic RSV Immunization Patients Under 20 months Aged Out No longer eligible based on patient's age to complete this topic Varicella Vaccines Aged Out No longer eligible based on patient's age to complete this topic Insurance MEDICARE MEDICAID - [place] [facility] Care Teams Pipe Stem Aligner Relationship Specialty Start Date End Date Bella Frey [address] [place] [id number] PCP - General 01/07/23
== END 2024-06-08 12:08 | disposition home or self-care (01) ==
LOC: HO.HMCFM 11:16
PROVIDERS: PCP Internal Medicine; Visit Provider Internal Medicine
DX: Z00.00 Encounter for general adult medical examination without abnormal findings (principal); M54.42 Lumbago with sciatica, left side; I48.0 Paroxysmal atrial fibrillation; M54.41 Lumbago with sciatica, right side; G89.29 Other chronic pain; M51.379 Other intervertebral disc degeneration, lumbosacral region without mention of lumbar back pain or lower extremity pain

== ENCOUNTER → 2024-06-08 11:16 | Outpatient (BNVA) | payer MEDICARE, SELFPAY | PROVIDERS: PCP Internal Medicine; Visit Provider Internal Medicine | DX: Z13.89 Encounter for screening for other disorder (principal) ==

== ENCOUNTER 2024-06-22 15:57 | Outpatient (AMB) | payer MEDICARE, SELFPAY ==
--- NOTE | 2024-06-22 16:03 | MHC.PC.OV ---
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: No Allergies No Known Allergies Allergy (Verified 06/22/24 16:05) Tobacco use date assessed: 06/22/24 Fall risk assessment: 2 + Falls in past year Last assessed Fall Risk: 06/22/24 Dental Screening Dental Screen Date: 06/22/24 Did you have a dental visit in the last 12 months?: No Did you have a dental problem in the last 6 months where you did not have access to dental care?: No Was dental information given to patient?: Patient declined (has dentures) HPI HPI Comments History of Present Illness Details 79 y/o male patient with a past medical history of hypertension, hyperlipidemia, TIA, NPH, white matter changes, low back pain presenting for hospital follow up Hospitalized 06/15-06/17/2024 at [facility] Presented with generalized weakness as well as a fall at home. His potassium was noted to be 2.9. We had recently increased lasix. He received IV as well as oral potassium, IV fluids. He is feeling better. The increased lasix was working for edema so we will restart this as needed and add potassium supplementation on those days. CV: Follows with [facility] Dr Teague every 6 months. Upcoming watchman. Will be able to come off eliquis thereafter. Urology: BPH. Follows with Dr Macias at [facility]. Will have upcoming prostate surgery. Neuro: history of TIA, NPH. Follows with neurology. Pt reports BLE weakness R>L and frequent falls. He feels his legs too heavy and weak to lift, difficulty walking up stairs. Memory loss. Brain MRI result 01/04/2023 result reviewed. The result was consistent with normal pressure hydrocephalus but neurology did review and did not see evidence of this. LP was not helpful. volume loss and chronic small vessel changes. Continues on donepezil. MSK: -His biggest issue is uncontrolled chronic pain. Short acting oxycodone was approved by insurance, the long acting was not. Will try for long acting morphine today which insurance says it covered. Sits on the recliner most of the day a pain levels are too high. He would like to be able to walk, do yardwork. He was recently started on LDN but this has not afforded him relief from pain. He was interested in Journavx but this does not appeared to be covered by insurance. Low back, shoulders, knees. He takes tylenol. Unable to take other otc medications. On eliquis. -Pt has hx of lumbar degenerative disease. Saw [facility]. Received lumbar injection-was not effective. Legs still feel heavy, decreases mobility. Has swelling which is much better. Did not tolerate diuretic or prescription compression. MRI lumbar spine July 2023 [facility] for knee, shoulder. He gets cortisone shot on his knee and shoulder q 3 months. ROS see HPI PHYSICAL EXAM: GENERAL: Alert and oriented x 3. NAD EYES: EOMI. Anicteric. HENT: Moist mucous membranes. No scleral icterus. No cervical lymphadenopathy. LUNGS: Clear to auscultation bilaterally. CARDIOVASCULAR: Regular rate and rhythm. soft systolic murmur No JVD. ABDOMEN: Soft, non-tender +bs EXTREMITIES: 1+ b/l LE edema SKIN: No rashes or lesions. Warm. NEUROLOGIC: No focal neurological deficits. CN II-XII grossly intact PSYCHIATRIC: Cooperative. Appropriate mood and affect [facility] Medical History Recurrent falls Gait disorder NPH (normal pressure hydrocephalus) Chronic back pain Basal cell carcinoma Benign prostate hyperplasia Hyperlipidemia TIA (transient ischemic attack) CAD (coronary artery disease) HTN (hypertension) Atrial fibrillation Finger amputation, traumatic Surgical History Hx of colonoscopy History of surgical removal of meniscus of knee Family History Father No problems noted. Mother No problems noted. Brother No problems noted. Social History Household Members: None Housing: House Alcohol intake: former Patient Tobacco Use Status: Former Tobacco user Cigarettes Per Day: 1 Years Smoked: 20 Packs per year/per ci.00 e-Cigarette/Vaping Use: Never Used service: No Current occupational status: retired Cognitive needs: No Hearing needs: Yes Vision needs: No Questionnaire PHQ-9 Over the last 2 weeks, how often have you been bothered by any of the following problems? 1. Little interest or pleasure in doing things: not at all 2. Feeling down, depressed, or hopeless: not at all 3. Trouble falling or staying asleep, or sleeping too much: not at all 4. Feeling tired or having little energy: not at all 5. Poor appetite or overeating: not at all 6. Feeling bad about yourself - or that you are a failure or have let yourself or your family down: not at all 7. Trouble concentrating on things, such as reading the newspaper or watching television: not at all 8. Moving or speaking so slowly that other people could have noticed. Or the opposite - being so fidgety or restless that you have been moving around a lot more than usual: not at all 9. Thoughts that you would be better off or of hurting yourself in some way: not at all Total score: 0 Depression Screening Interpretation: Negative Depression Screening Done: Yes 78834 - PHQ-9 Billing: Yes Source: Developed by Drs. Demetris Yanes, Sera Vitale, Reginald Joy and colleagues, with an educational abena from [employer]. Thrive Questionnaire Date Thrive assessed: 06/19/24 I am a: Patient What is your living situation today?: I have a steady place to live Within the past 12 months, did the food you bought not last and you didn't have the money to get more?: Never true Within the past 12 months, did you worry whether your food would run out before you got money to buy more?: Never true Do you have trouble paying for medicines?: No Do you have trouble getting transportation to medical appointments?: No Do you have trouble paying your heating and electricity bill?: No Do you have trouble taking care of your child, family member or friend?: No Do you have trouble with day-to-day activities such as bathing, preparing meals, shopping, managing finances, etc.?: No Are you currently unemployed and looking for a job?: No Are you interested in more education?: No Please select the resources that you would like help with: None Currently or been in a relationship where the following occur: No concerns reported THRIVE Score: 0 AUDIT C Alcohol Use Questionnaire (AUDIT-C) 1. How often do you have a drink containing alcohol?: Monthly or less 2. How many drinks containing alcohol do you have on a typical day when you are drinking?: 1 or 2 3. How often do you have six or more drinks on one occasion?: Never Total Score: 1 MUNIR-7 AMB Questionnaire MUNIR-7 Date MUNIR - 7 assessed: 06/22/24 Feeling nervous, anxious, or on edge: 0 = Not at all Not being able to stop or control worryin = Not at all Worrying too much about different things: 0 = Not at all Trouble relaxin = Several days Being so restless that it is hard to sit still: 0 = Not at all Becoming easily annoyed or irritable: 0 = Not at all Feeling afraid as if something awful might happen: 0 = Not at all Total MUNIR-7 score (0-4 normal; 5-9 mild; 10-14 moderate; 15-21 severe): 1 Source: Developed by Drs. Demetris Yanes, Sera Vitale, Reginald Joy and colleagues, with an educational abena from [employer]. MUNIR-7 Assessment Billing MUNIR-7 Assessment Tool: MUNIR-7 Assessment 87899 Physical exam (Primary Care) Vital Signs: Last Vital Signs Pulse 65 06/22/24 16:09 Resp 14 06/22/24 16:09 BP 128/70 06/22/24 16:15 Pulse Ox 98 06/22/24 16:09 Oxygen Delivery Method Room Air 06/22/24 16:09 BMI result Body Mass Index 31.7 Tobacco/Smoking Status: Tobacco use Status Tobacco use date assessed 06/22/24 06/22/24 16:12 Patient Tobacco Use Status Former Tobacco user 06/22/24 16:04 e-Cigarette/Vaping Use Never Used 06/22/24 16:04 PHQ-9: PHQ-9 Score PHQ-9: Total score 0 06/22/24 16:23 Depression Screening Interpretation: Negative Thrive Assessment: Date of Thrive Assessment Date Thrive assessed 06/19/24 06/22/24 16:04 Currently or been in a relationship where the following occur: No concerns reported Coding Level of Care Code Est Pt Level 4 (05021) Complex EM visit Add On G2211 Diagnoses Hypokalemia E87.6 Weakness of both lower extremities R29.898 Laterality: bilateral Chronic pain syndrome G89.4 Chronic pain type: chronic pain syndrome Additional Codes MUNIR-7 Assessment Billing - MUNIR-7 Assessment Tool: MUNIR-7 Assessment 22620 ([id number]) PHQ-9 - 90631 - PHQ-9 Billing: Yes ([id number]) Assessment & Plan Assessment & Plan (1) Hypokalemia: Code(s): E87.6 - Hypokalemia Category: Medical (2) Lower extremity weakness: Code(s): R29.898 - Other symptoms and signs involving the musculoskeletal system Category: Medical Qualifiers: Laterality: bilateral Qualified Code(s): R29.898 - Other symptoms and signs involving the musculoskeletal system (3) Chronic pain: Code(s): G89.29 - Other chronic pain Category: Medical Qualifiers: Chronic pain type: chronic pain syndrome Qualified Code(s): G89.4 - Chronic pain syndrome Plan Hospital discharge-hospitalization course, labs reviewed. Can continue lasix with addition of potassium prn. BMP 1-2 weeks Chronic pain-Will try morphine ER to replace previously ordered oxycodone ER. Orders: Orders Basic Metabolic Panel 06/22/24 E87.6 - Hypokalemia, M51.379 - Other intervertebral disc degeneration, lumbosacral region without mention of lumbar back pain or lower extremity pain Medications: New morphine ER Partial Fill upon patient request. 15 mg PO Q12H 56 tabs 0RF 28 days M51.379 - Other intervertebral disc degeneration, lumbosacral region without mention of lumbar back pain or lower extremity pain potassium chloride ER 40 mEq (2 x 20 mEq) PO DAILY 90 tabs 1RF Changed From oxycodone Partial Fill upon patient request. 5 mg PO BID PRN 60 tabs 0RF breakthrough pain To oxycodone Partial Fill upon patient request. 5 mg PO BID PRN 56 tabs 0RF breakthrough pain 28 days Discontinued oxycodone ER Partial Fill upon patient request. Discontinued Reason: Doctor's Order 15 mg PO BID 60 tabs 0RF G89.29 - Other chronic pain, M51.379 - Other intervertebral disc degeneration, lumbosacral region without mention of lumbar back pain or lower extremity pain suzetrigine (Journavx) Discontinued Reason: Doctor's Order 50 mg PO DAILY 30 tabs 0RF
[2024-06-22 16:09] VITALS: BP 148/66; PULSE 65; RESP 14; O2SAT 98; BMI 31.7
[2024-06-22 16:15] VITALS: BP 128/70
== END 2024-06-22 16:32 | disposition home or self-care (01) ==
LOC: HO.HMCFM 15:57
PROVIDERS: PCP Internal Medicine; Visit Provider Internal Medicine
DX: E87.6 Hypokalemia (principal); R29.898 Other symptoms and signs involving the musculoskeletal system; G89.4 Chronic pain syndrome

== ENCOUNTER → 2024-06-22 15:57 | Outpatient (BNVA) | payer MEDICARE, SELFPAY | PROVIDERS: PCP Internal Medicine; Visit Provider Internal Medicine | DX: E87.6 Hypokalemia (principal); R29.898 Other symptoms and signs involving the musculoskeletal system; G89.4 Chronic pain syndrome; I10 Essential (primary) hypertension; E78.5 Hyperlipidemia, unspecified; Z86.73 Personal history of transient ischemic attack (TIA), and cerebral infarction without residual deficits; Z79.891 Long term (current) use of opiate analgesic | CPT/HCPCS: 96127; 99212 ==

== ENCOUNTER → 2024-09-07 23:59 | Outpatient (BNV) | payer MEDICARE, SELFPAY | PROVIDERS: PCP Internal Medicine; Visit Provider Internal Medicine | DX: N40.1 Benign prostatic hyperplasia with lower urinary tract symptoms (principal); R39.12 Poor urinary stream; N13.1 Hydronephrosis with ureteral stricture, not elsewhere classified | CPT/HCPCS: G0180 ==

== ENCOUNTER → 2024-11-02 23:59 | Outpatient (BNV) | payer MEDICARE, SELFPAY | PROVIDERS: PCP Internal Medicine; Visit Provider Internal Medicine | DX: I48.0 Paroxysmal atrial fibrillation (principal); I20.9 Angina pectoris, unspecified; I10 Essential (primary) hypertension | CPT/HCPCS: G0179 ==

== ENCOUNTER 2024-12-14 11:09 | Outpatient (AMB) | payer MEDICARE, SELFPAY ==
--- NOTE | 2024-12-14 11:24 | A.OFFPC_ITS ---
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 Required: No Allergies No Known Allergies Allergy (Verified 12/14/24 11:38) Tobacco use date assessed: 12/14/24 Dental Screening Dental Screen Date: 12/14/24 Did you have a dental visit in the last 12 months?: No Did you have a dental problem in the last 6 months where you did not have access to dental care?: Yes Was dental information given to patient?: Patient has dentist HPI HPI Comments History of Present Illness Details 79 y/o male patient with a past medical history of hypertension, hyperlipidemia, TIA, NPH, white matter changes, low back pain presenting for follow up CV: Follows with [facility]iology. s/p watchman. Continues on AC through January. Urology: BPH. Follows with Dr Macias at [facility]. Will have upcoming prostate surgery once off AC. He did require catheter post surgery for watchman. Neuro: history of TIA, NPH. Follows with neurology. Pt reports BLE weakness R>L and frequent falls. He feels his legs too heavy and weak to lift, difficulty walking up stairs. Memory loss. Brain MRI result 01/04/2023 result reviewed. The result was consistent with normal pressure hydrocephalus but neurology did review and did not see evidence of this. LP was not helpful. volume loss and chronic small vessel changes. Continues on donepezil. MSK: stable. Recent episode of left great toe gout. He used old allopurinol. - Sits on the recliner most of the day a pain levels are too high. He would like to be able to walk, do yardwork. He was recently started on LDN but this has not afforded him relief from pain. He was interested in Journavx but this d oes not appeared to be covered by insurance. Low back, shoulders, knees. He takes tylenol. Unable to take other otc medications. On eliquis. -Pt has hx of lumbar degenerative diseas e. Saw [facility]. Received lumbar injection-was not effective. Legs still feel heavy, decreases mobility. Has swelling which is much better. Did not tolerate diuretic or prescription compression. MRI lumbar spine July 2023 [facility] for knee, shoulder. He gets cortisone shot on his knee and shoulder q 3 months. Insomnia-failed melatonin, trazodone. ROS see HPI PHYSICAL EXAM: GENERAL: Alert and oriented x 3. NAD EYES: EOMI. Anicteric. HENT: Moist mucous membranes. No scleral icterus. No cervical lymphadenopathy. LUNGS: Clear to auscultation bilaterally. CARDIOVASCULAR: Regular rate and rhythm. systolic murmur No JVD. ABDOMEN: Soft, non-tender +bs EXTREMITIES: Trace b/l LE edema SKIN: Senile purpura NEUROLOGIC: No focal neurological deficits. CN II-XII grossly intact PSYCHIATRIC: Cooperative. Appropriate mood and affect [facility] Medical History Recurrent falls Gait disorder NPH (normal pressure hydrocephalus) Chronic back pain Basal cell carcinoma Benign prostate hyperplasia Hyperlipidemia TIA (transient ischemic attack) CAD (coronary artery disease) HTN (hypertension) Atrial fibrillation Finger amputation, traumatic Surgical History Hx of colonoscopy History of surgical removal of meniscus of knee Family History Father No problems noted. Mother No problems noted. Brother No problems noted. Social History Household Members: None Housing: House Alcohol intake: former Patient Tobacco Use Status: Former Tobacco user Cigarettes Per Day: 1 Years Smoked: 20 e-Cigarette/Vaping Use: Never Used service: No Current occupational status: retired Cognitive needs: No Hearing needs: Yes Vision needs: No Questionnaire Thrive Questionnaire Date Thrive assessed: 06/19/24 I am a: Patient What is your living situation today?: I have a steady place to live Within the past 12 months, did the food you bought not last and you didn't have the money to get more?: Never true Within the past 12 months, did you worry whether your food would run out before you got money to buy more?: Never true Do you have trouble paying for medicines?: No Do you have trouble getting transportation to medical appointments?: No Do you have trouble paying your heating and electricity bill?: No Do you have trouble taking care of your child, family member or friend?: No Do you have trouble with day-to-day activities such as bathing, preparing meals, shopping, managing finances, etc.?: No Are you currently unemployed and looking for a job?: No Are you interested in more education?: No Please select the resources that you would like help with: None Currently or been in a relationship where the following occur: No concerns reported THRIVE Score: 0 MUNIR-7 AMB Questionnaire MUNIR-7 Date MUNIR - 7 assessed: 06/22/24 Source: Developed by Drs. Demetris Yanes, Sera Vitale, Reginald Joy and colleagues, with an educational abena from [employer]. Physical exam (Primary Care) Vital Signs: Last Vital Signs Temp 97.5 F 12/14/24 11:41 Pulse 66 12/14/24 11:41 Resp 14 12/14/24 11:41 BP 132/70 12/14/24 11:41 Pulse Ox 96 12/14/24 11:41 Oxygen Delivery Method Room Air 12/14/24 11:41 BMI result Body Mass Index 29.6 Tobacco/Smoking Status: Tobacco use Status Tobacco use date assessed 12/14/24 12/14/24 11:43 Patient Tobacco Use Status Former Tobacco user 12/14/24 11:40 e-Cigarette/Vaping Use Never Used 12/14/24 11:40 Thrive Assessment: Date of Thrive Assessment Date Thrive assessed 06/19/24 12/14/24 11:26 Currently or been in a relationship where the following occur: No concerns reported Coding Level of Care Code Est Pt Level 4 (66819) Complex EM visit Add On G2211 Diagnoses Coronary artery disease, unspecified vessel or lesion type, unspecified whether angina present, unspecified whether [place] or transplanted heart I25.10 Coronary Disease-Associated Artery/Lesion type: unspecified vessel or lesion type [place] vs. transplanted heart: unspecified whether [place] or transplanted heart Associated angina: unspecified whether angina present Hypertension, unspecified type I10 Hypertension type: unspecified Paroxysmal atrial fibrillation I48.0 Atrial fibrillation type: paroxysmal DDD (degenerative disc disease), lumbosacral M51.379 Assessment & Plan Assessment & Plan (1) CAD (coronary artery disease): Code(s): I25.10 - Atherosclerotic heart disease of [place] coronary artery without angina pectoris Category: Medical Qualifiers: Coronary Disease-Associated Artery/Lesion type: unspecified vessel or lesion type [place] vs. transplanted heart: unspecified whether [place] or transplanted heart Associated angina: unspecified whether angina present Qualified Code(s): I25.10 - Atherosclerotic heart disease of [place] coronary artery without angina pectoris (2) HTN (hypertension): Code(s): I10 - Essential (primary) hypertension Category: Medical Qualifiers: Hypertension type: unspecified Qualified Code(s): I10 - Essential (primary) hypertension (3) Atrial fibrillation: Code(s): I48.91 - Unspecified atrial fibrillation Category: Medical Qualifiers: Atrial fibrillation type: paroxysmal Qualified Code(s): I48.0 - Paroxysmal atrial fibrillation (4) DDD (degenerative disc disease), lumbosacral: Code(s): M51.379 - Other intervertebral disc degeneration, lumbosacral region without mention of lumbar back pain or lower extremity pain Category: Medical Plan 79 year old male for follow up CAD stable. Tolerated watchman procedure. Will have AC through Jan awaiting surgery Gout-prn prednisone MSK-stable Insomnia-trial ambien Update labs. Orders: Orders Uric Acid Today E78.5 - Hyperlipidemia, unspecified, I10 - Essential (primary) hypertension, I25.10 - Atherosclerotic heart disease of [place] coronary artery without angina pectoris, I48.0 - Paroxysmal atrial fibrillation, M10.9 - Gout, unspecified TSH reflex Free T4 Today E78.5 - Hyperlipidemia, unspecified, I10 - Essential (primary) hypertension, I25.10 - Atherosclerotic heart disease of [place] coronary artery without angina pectoris, I48.0 - Paroxysmal atrial fibrillation, M10.9 - Gout, unspecified Comprehensive Met. Panel Today E78.5 - Hyperlipidemia, unspecified, I10 - Essential (primary) hypertension, I25.10 - Atherosclerotic heart disease of [place] coronary artery without angina pectoris, I48.0 - Paroxysmal atrial fibrillation, M10.9 - Gout, unspecified Lipid Panel Today E78.5 - Hyperlipidemia, unspecified, I10 - Essential (primary) hypertension, I25.10 - Atherosclerotic heart disease of [place] co ronary artery without angina pectoris, I48.0 - Paroxysmal atrial fibrillation, M10.9 - Gout, unspecified Complete Blood Count Auto Diff Today E78.5 - Hyperlipidemia, unspecified, I10 - Essential (primary) hypertension, I25.10 - Atherosclerotic heart disease of [place] coronary artery without angina pectoris, I48.0 - Paroxysmal atrial fibrillation, M10.9 - Gout, unspecified Vitamin B12 and Folate Today E78.5 - Hyperlipidemia, unspecified, I10 - Essential (primary) hypertension, I25.10 - Atherosclerotic heart disease of [place] coronary artery without angina pectoris, I48.0 - Paroxysmal atrial fibrillation, M10.9 - Gout, unspecified Medications: New prednisone 40 mg (2 x 20 mg) PO DAILY PRN 30 tabs 0RF gout 10 days zolpidem (Ambien) 5 mg PO BEDTIME PRN 30 tabs 3RF sleep pravastatin 40 mg PO BEDTIME 90 tabs 3RF
[2024-12-14 11:41] VITALS: BP 132/70; PULSE 66; RESP 14; TEMP 36.4; O2SAT 96; BMI 29.6
== END 2024-12-14 12:04 | disposition home or self-care (01) ==
LOC: HO.HMCFM 11:10
PROVIDERS: PCP Internal Medicine; Visit Provider Internal Medicine
DX: I25.10 Atherosclerotic heart disease of native coronary artery without angina pectoris (principal); I10 Essential (primary) hypertension; I48.0 Paroxysmal atrial fibrillation; M51.379 Other intervertebral disc degeneration, lumbosacral region without mention of lumbar back pain or lower extremity pain

== ENCOUNTER → 2024-12-14 11:09 | Outpatient (BNVA) | payer MEDICARE, SELFPAY | PROVIDERS: PCP Internal Medicine; Visit Provider Internal Medicine | DX: I25.10 Atherosclerotic heart disease of native coronary artery without angina pectoris (principal); I10 Essential (primary) hypertension; I48.0 Paroxysmal atrial fibrillation; M51.379 Other intervertebral disc degeneration, lumbosacral region without mention of lumbar back pain or lower extremity pain; M10.9 Gout, unspecified; N40.0 Benign prostatic hyperplasia without lower urinary tract symptoms; G47.00 Insomnia, unspecified; Z79.01 Long term (current) use of anticoagulants | CPT/HCPCS: 99212 ==